=== PATIENT | female | born 1940 | race Caucasian/White ===

== ENCOUNTER → 2018-01-08 13:05 | Outpatient (CLI) | payer MEDICARE ==
[2018-01-08 14:10] LABS: CHOL - HDL RATIO 2.5 ratio (2.3-4.1); LDL-HDL RATIO 1.1 ratio (1.5-3.5)
== END | disposition home or self-care (01) ==
LOC: D.LABREF 13:05
PROVIDERS: Internal Medicine Cardiovascular Disease
DX: E78.5 Hyperlipidemia, unspecified (principal)

== ENCOUNTER 2018-01-15 06:55 | Outpatient (CLI) | payer MEDICARE ==
[~2018-01-15] VITALS: Ht 165.1 cm; Wt 50.9 kg
--- NOTE | ~2018-01-15 | HEMODYNAMI ---
PATIENT:LAKESHIA HERRERA MEDICAL RECORD: [id number] : 36 LOCATION:[facility] ADMISSION DATE: 01/15/18 Generatedon:01/15/201810:13 Patient name: LAKESHIA HERRERA Patient #: [id number] SSN: DO B: 1940 Date of study: 01/15/2018 Page: Of Hemodynamic Procedure Report Patient Data Patient Demographics Procedure consent was obtained First Name: LAKESHIA Gender: Female Last Name: SHAORN : 1940 Patient #: [id number] Age: 77 year(s) Race: Unknown Additional ID: [id number] Contact details Address: [address] [place] [address] State: [place] City: [place] Zip code: [address] Past Medical History Allergies Allergen Reaction Date Comments Reported Other allergy 01/15/2018 Sulfa Admission Admission Data Admission Date: 01/15/2018 Admission Time: 6:55 Admit Source: Other Lab Results Lab Result Date: 01/15/2018 Lab Result Time: 7:28 Biochemistry Name Units Result Min Max BUN mg/dl 16 --(---*)-- 7 18 Creatinine mg/dl 1.3 --(---*)-- 0.6 1.3 CBC Name Units Result Min Max Hematocrit % 40.1 -*(----)-- 42 54 Hemoglobin g/dl 13.5 --(*---)-- 13.5 17.5 Procedure Procedure Types Cath Procedure Diagnostic Procedure LHC LHC w/Coronaries Miscellaneous Procedures Moderate Sedation up to 15 minutes Peripheral Cath Diagnostic Procedure Cath Peripheral Four Vessel Arteriogram Procedure Description Procedure Date Procedure Date: 01/15/2018 Procedure Start Time: 9:52 Procedure End Time: 10:12 Procedure Staff Name Function Stas Meeks MD Performing Physician Alex Bello RN Nurse Rafy Coronel RT Monitor Regla Zeng RT Scrub Procedure Data Cath Procedure Fluoroscopy Diagnostic fluoroscopy Total fluoroscopy Time: 4.2 time: 4.2 min min Diagnostic fluoroscopy Total fluoroscopy dose: 168 dose: 168 mGy mGy Contrast Material Contrast Material Type Amount (ml) Isovue 300 76 Entry Location Entry Primary Successful Side Size Upsize Upsize Entry Closure Succes sful Closure Location (Fr) 1 (Fr) 2 (Fr) Remarks Device Remarks Femoral Right 5 Fr Exoseal artery Estimated blood loss: 5 ml Diagnostic catheters Device Type Used For End Catheter Placement MULTIPACK JL 4.0 5Fr Procedure catheter MULTIPACK 3DRC 5Fr Procedure catheter MULTIPACK Pigtail 5 Fr Procedure catheter Procedure Complications No complications Procedure Medications Medication Administration Route Dosage 0.9% NaCl I.V. 100 ml/hr Oxygen NC 2 l/min Heparin Flush Bag added to field 2 bags (1000units/500ml NS) Lidocaine 2% added to field 20 Versed I.V. 1 mg Fentanyl I.V. 50 mcg Hemodynamics Rest HGB: 13.5 (g/dl) Heart Rate: 59 (bpm) Pressure Samples Time Site Value (mmHg) Purpose Heart Use Rate(bpm) 10:06 LV 115/0,21 EDP 69 10:06 AO 111/44(72) Pullback 60 10:06 LV 112/11,17 Pullback 60 Gradients Valve Time Site 1 Site 2 Mean SEP/DFP Peak To Heart Use (mmHg) (sec/min) Peak Rate (mmHg) (bpm) Aortic 10:06 LV AO 14 21 1 60 112/11,17 111/44(72) Calculations Valve P-P Mean Valve Index Valve Source Name Gradient Area Flow (cm2) Aortic 1 14 1 14 Snapshots Pre Cath Intra NCS Post Cath Vital Signs Time Heart Resp SPO2 etCO2 NIBP (mmHg) Rhythm Pain Sedation Rate (ipm) (%) (mmHg) Status Level (bpm) 9:17:07 61 17 97 30 172/89(138) NSR 0 (11) 10(A) , No pain 9:21:52 58 22 97 25.5 166/88(139) NSR 0 (11) 10(A) , No pain 9:26:37 59 15 96 15 173/87(142) NSR 0 (11) 10(A) , No pain 9:31:17 60 28 95 20.3 160/82(141) NSR 0 (11) 10(A) , No pain 9:36:02 60 25 96 16.5 156/83(128) NSR 0 (11) 10(A) , No pain 9:40:45 58 24 96 18 164/83(138) NSR 0 (11) 10(A) , No pain 9:45:30 58 25 96 13.5 159/79(131) NSR 0 (11) 10(A) , No pain 9:50:12 58 23 97 21.7 155/82(134) NSR 0 (11) 10(A) , No pain 9:54:57 58 24 94 17.2 138/70(111) NSR 0 (11) 9(A) , No pain 9:59:38 56 19 95 21 116/61(84) NSR 0 (11) 9(A) , No pain 10:04:16 57 25 95 31.5 109/58(77) NSR 0 (11) 9(A) , No pain 10:08:51 55 21 94 25.5 113/62(88) NSR 0 (11) 9(A) , No pain Medications Time Medication Route Dose Verified Delivered Reason Notes Effec tiveness by by 9:18:06 0.9% NaCl I.V. 100 Alex Alex Per ml/hr Eugenia Bello physician RN RN 9:18:28 Oxygen NC 2 Alex Alex Per l/min Eugenia Bello physician RN RN 9:18:48 Heparin Flush added 2 Alex Alex used for Bag to bags Lorigan Eugenia procedure (1000units/500ml RN RN NS) 9:19:04 Lidocaine 2% added 20ml Alex Alex for local to vial Lorigan [facility] RN RN 9:51:51 Versed I.V. 1 mg Alex Alex for Lorigan Lorigan sedation RN RN 9:52:05 Fentanyl I.V. 50 Alex Alex for mcg Lorigan Lorigan sedation RN county administrator Log Time Note 8:37:39 Informed consent obtained and on chart 8:38:04 Admit Source: Other 8:38:53 Diagnostic Cath status Elective 8:38:57 Time tracking: Regular hours 8:39:01 Plan of Care:Hemodynamics will remain stable., Cardiac rhythm will remain stable., Comfort level will be maintained., Respiratory function will remain adequate., Patient/ family verbilizes understanding of procedure., Procedure tolerated without complication., Recovers from procedure without complications.. 8:39:11 H&P Date Dictated: 01/07/2018 Within 30 days and on chart., H&P Addendum completed by physician on day of procedure. (MUST COMPLETE FOR ALL OUTPATIENTS). 9:00:10 Alex Bello RN sent for patient. Start room use. 9:00:11 Time tracking: Regular hours 9:00:14 Plan of Care:Hemodynamics will remain stable., Cardiac rhythm will remain stable., Comfort level will be maintained., Respiratory function will remain adequate., Patient/ family verbilizes understanding of procedure., Procedure tolerated without complication., Recovers from procedure without complications.. 9:00:46 Lab Result : BUN 16 mg/dl 9:00:46 Lab Result : Creatinine 1.3 mg/dl ::46 Lab Result : Hemoglobin 13.5 g/dl ::46 Lab Result : Hematocrit 40.1 % 9:02:18 Patient allergic to Other allergySulfa 9:02:22 Family in waiting room. 9:05:17 Patient received from Pre/Post Procedure Room to CCL 1 Alert and oriented. Tansferred to table in Supine position. 9:05:19 Warm blankets applied, and cherise hugger turned on for patient comfort. 9:05:19 Correct patient and procedure confirmed by team. 9:05:21 ECG and BP/O2 sat monitors applied to patient. 9:05:25 Pre-procedure instructions explained to patient. 9:05:26 Pre-op teaching completed and patient verbalized understanding. 9:05:29 Patient NPO since Midnight. 9:16:10 Vital chart was started 9:18:06 0.9% NaCl 100 ml/hr I.V. was administered by Alex Bello RN; Per physician; 9:18:28 Oxygen 2 l/min NC was administered by Alex Bello RN; Per physician; 9:18:48 Heparin Flush Bag (1000units/500ml NS) 2 bags added to field was administered by Alex Bello RN; used for procedure; 9:19:04 Lidocaine 2% 20ml vial added to field was administered by Alex Bello RN; for local anesthetic; 9:21:35 Baseline sample Acquired. 9:21:39 Rhythm: sinus rhythm 9:21:41 Full Disclosure recording started 9:21:44 Is the patient allergic to Iodine/contrast media? No. 9:21:45 Is patient on blood thinner?Yes 9:21:47 ACC The patient was administered the following blood thiners within the last 24 hours: ACCPlavix 9:21:49 Patient diabetic? No. 9:21:52 Previous problem with sedation/anesthesia? No ? 9:21:54 Snore? Yes 9:21:55 Sleep apnea? No 9:21:56 Deviated septum? No 9:21:57 Opens mouth fully? Yes 9:21:58 Sticks out tongue? Yes 9:22:01 Airway obstruction? Yes copd 9:22:04 Dentures? Yes in tight 9:22:07 Pre procedure: right dorsailis pedis pulse 2+ Normal; easily identifiable; not easily obliterated 9:22:09 Patient pain scale 0/10 ?. 9:22:20 IV patent on arrival in left antecubital with 0.9% NaCl at KVO. 9:22:26 Lab results completed and on chart. 9:22:30 Right groin area was prepped with chlora-prep and draped in sterile fashion 9:22:32 Alarms reviewed by R. N. 9:22:32 Sharps counted by scrub and verified by R.N. 9:22:37 Use device set Femoral Dx 9:22:38 ACIST Syringe (84985) opened to sterile field. 9:22:39 Bag Decanter (2002S) opened to sterile field. 9:22:40 ACIST Manifold (05125) opened to sterile field. 9:22:41 ACIST Hand Control (68486) opened to sterile field. 9:22:42 Tegaderm 4 x 4 (1626W) opened to sterile field. 9:22:44 Medline Cath Pack ([id number]) opened to sterile field. 9:22:45 SHEATH 5FR [place] ([id number]) opened to sterile field. 9:22:46 DIAGNOSTIC WIRE .035 260cm J wire (157877) opened to sterile field. 9:22:49 DIAGNOSTIC Multipack 5Fr catheter set ([id number]) opened to sterile field. 9:22:50 PERCUTANEOUS ENTRY 19GA needle opened to sterile field. 9:24:41 MICROPUNCTURE 4FR Idea Shower ([id number]) opened to sterile field. 9:31:02 Zero performed for pressure channel P1 9:50:17 Physician arrived 9:50:17 --------ALL STOP TIME OUT------ 9:50:18 Final Timeout: patient, procedure, and site verified with staff and physician. All members of the team are in agreement. 9:50:20 Right groin site verified by team. 9:50:23 Physical assessment completed. ASA score P 2 - A patient with mild systemic disease as per Stas Meeks MD. :50:27 Sedation plan: IV Moderate Sedation Medication:Versed, Fentanyl 9::51 Versed 1 mg I.V. was administered by Alex Bello RN; for sedation; 9:52:05 Fentanyl 50 mcg I.V. was administered by Alex Bello RN; for sedation; 9::49 Procedure started. 9:52:53 Local anesthetic to right femoral artery with Lidocaine 2% by Stas Meeks MD.INITIAL ACCESS ONLY 9:54:39 Access obtained with 4Fr micropunture. 9:55:26 A 5 Fr sheath was inserted into the Right Femoral artery 9:56:08 A MULTIPACK JL 4.0 5Fr catheter was advanced over the wire and used for Procedure. 9:57:23 LCA angiography performed. 9:57:32 Catheter exchanged over wire. 9:57:37 A MULTIPACK 3DRC 5Fr catheter was advanced over the wire and used for Procedure. 9:59:14 RCA angiography performed. 10:00:16 Left carotid angiography performed. 10:01:21 Right subclavian angiography performed 10:01:23 Right carotid angiography performed. 10:01:59 Catheter exchanged over wire. 10:02:03 A MULTIPACK Pigtail 5 Fr catheter was advanced over the wire and used for Procedure. 10:06:17 LV gram done using CLAROS 10:06:24 Injector settings: Ml/sec: 12, Volume: 8, 10:06:44 EF : 75 % 10:06:51 EXOSEAL 5Fr (EX500) opened to sterile field. 10:06:54 Catheter removed. 10:07:00 Sheath removed intact; hemostasis achieved with Exoseal to the Right Femoral artery. 10:07:10 Procedure ended.(Physican Out) 10:08:16 Fluoroscopy time 04.20 minutes. :: Fluoroscopy dose: 168 mGy 10:08:27 Flurop Dose total: 168 10:08:40 Contrast amount:Isovue 300 76ml. 10:08:43 Insertion/operative site no bleeding no hematoma. 10:08:46 Post-op/insertion site Right Femoral artery dressed using a 4 x 4 and Tegaderm. 10:08:50 Post right femoral artery:stable, soft, clean and dry 10:08:53 Post procedure rhythm: unchanged. 10:08:58 Estimated blood loss: 5 ml 10:09:26 Post procedure instruction explained to patient.Patient verbalizes understanding. 10:09:26 Patient needs reinforcement of post procedure teaching. 10:10:15 Procedure type changed to Cath procedure, Diagnostic procedure, LHC, LHC w/Coronaries, Miscellaneous Procedures, Moderate Sedation up to 15 minutes, Peripheral Cath Diagnostic Procedure, Cath Peripheral, Four Vessel Arteriogram 10:11:49 GLIDE WIRE ANGLE 260cm ([id number]) opened to sterile field. 10:12:18 Procedure and supply charges have been captured, reviewed, submitted and are correct. 10:12:21 Procedure Complication : No complications 10:12:40 Vital chart was stopped 10:12:40 See physician's report for complete and final results. 10:12:42 Report given to Pre/Post Procedure Room. 10:12:45 Patient transfered to Pre/Post Procedure Room with Stretcher. 10:12:47 Procedure ended. 10:12:47 Full Disclosure recording stopped 10:12:53 End room use (Document Last) Device Usage Item Name Manufacture Quantity Catalog Hospital Part Current Minimal Lot# / Number Charge Number Stock Stock Serial# Code ACIST Syringe Acist 1 28188 [id number] 105659 868912 20 (61362) [employer] Bag Decanter Microtek 1 2001S 055690 98168 248619 5 (2001S) Medical Inc. ACIST Acist 1 86819 478477 531336 274098 5 Manifold Medical (75425) Systems Inc ACIST Hand Acist 1 70495 738182 007196 864759 5 Control Medical (98678) Systems Inc Tegaderm 4 x 3M 1 1626W 011971 612386 937833 5 4 (1626W) Medline Cath Cardinal 1 [id number] 194993 47777 459405 5 [facility] ([id number]) SHEATH 5FR Terumo 1 NVP428 027502 780198 434516 40 [place] (IIR109) DIAGNOSTIC St Kirit 1 440415 420980 649520 372024 30 WIRE .035 260cm J wire (965339) DIAGNOSTIC Cardinal 1 TO7238 513880 81455 084992 30 Multipack 5Fr Health catheter set (RI8106) PERCUTANEOUS [facility] 1 C41666 676410 666985 5 ENTRY 19GA needle MICROPUNCTURE Cook [facility] 1 E45135 357788 862891 949796 5 4FR Cook (N27552) MULTIPACK JL Cardinal 1 951028 5 4.0 5Fr Health catheter MULTIPACK Cardinal 1 152525 5 3DRC 5Fr Health catheter MULTIPACK Cardinal 1 209279 5 Pigtail 5 Fr Health catheter EXOSEAL 5Fr Cardinal 1 EX500 541674 573701 330746 10 (EX500) Health GLIDE WIRE Terumo 1 IA0662 327933 115428 529857 5 ANGLE 260cm ([id number]) Signature Audit [place] Stage Time Signature Unsigned Intra-Procedure 01/15/2018 Rafy Coronel 10:13:42 AM RT(R) Signatures Monitor : Rafy Coronel RT Signature : Date : Time : [facility] [address] [place] [address]
[2018-01-15] MEDS ORDERED: TENORMIN25 MG PO (07:10)
[2018-01-15] MEDS ORDERED: XANAX0.25 MG PO (07:11)
[2018-01-15] MEDS ORDERED: SYNTHROID100 MCG PO (07:12)
[2018-01-15] MEDS ORDERED: PLAVIX75 MG PO (07:12)
[2018-01-15] MEDS ORDERED: COZAAR100 MG PO (07:12)
[2018-01-15] MEDS ORDERED: CARTIA XT300 MG PO (07:13)
[2018-01-15] MEDS ORDERED: LIPITOR20 MG PO (07:13)
[2018-01-15] MEDS ORDERED: CARTIA XT120 MG PO (07:14)
[2018-01-15 07:24] VITALS: BP 145/71; Ht 165.1 cm; Wt 50.9 kg
[2018-01-15 07:31] LABS: HEMATOCRIT 40.1 % (36.0-48.0); HEMOGLOBIN 13.5 g/dL (12-16); LYMPHOCYTES 22.4 % (15-50); MCH 28.9 pg (26.0-34.0); MCHC 33.7 g/dL (31.0-37.0); MCV 85.9 fL (80.0-100.0); MEAN PLATELET VOLUME 8.5 fL (7.4-10.4); PLATELET COUNT 258 10x3/uL (130-400); RBC 4.67 10x6/uL (4.00-5.40); RDW 13.8 % (11.5-14.5); WBC 8.6 10x3/uL (4.8-10.8)
[2018-01-15 07:47] LABS: ANION GAP 11.5 mmol/L (8-16); CALCIUM 8.7 mg/dL (8.5-10.1); CARBON DIOXIDE 26.5 mmol/L (21.0-32.0); CREATININE - SERUM 1.3 mg/dL (0.6-1.3)
== END 2018-01-15 12:29 | disposition home or self-care (01) ==
LOC: D.CATH 06:55
PROVIDERS: Internal Medicine Cardiovascular Disease
DX: I25.119 Atherosclerotic heart disease of native coronary artery with unspecified angina pectoris (principal); I65.23 Occlusion and stenosis of bilateral carotid arteries; I35.0 Nonrheumatic aortic (valve) stenosis; Z01.812 Encounter for preprocedural laboratory examination

== ENCOUNTER 2018-01-23 06:22 | Outpatient (CLI) | payer MEDICARE ==
--- NOTE | ~2018-01-23 | HEMODYNAMI ---
PATIENT:LAKESHIA HERRERA MEDICAL RECORD: [id number] : 36 LOCATION:D.CAT ADMISSION DATE: 01/23/18 Generatedon:01/23/20189:43 Patient name: LAKESHIA HERRERA Patient #: [id number] SSN: DO B: 1940 Date of study: 01/23/2018 Page: Of Hemodynamic Procedure Report Patient Data Patient Demographics Procedure consent was obtained First Name: LAKESHIA Gender: Female Last Name: SHARON : 1940 Patient #: [id number] Age: 77 year(s) Race: Unknown Additional ID: [id number] Contact details [address]: [address] [place] [address] State: [place] City: [place] Zip code: [address] Past Medical History Allergies Allergen Reaction Date Comments Reported Other allergy 01/15/2018 Sulfa Sulfa drugs 01/23/2018 Admission Admission Data Admission Date: 01/23/2018 Admission Time: 6:22 Admit Source: Other Lab Results Lab Result Date: 01/23/2018 Lab Result Time: 0:00 Biochemistry Name Units Result Min Max BUN mg/dl 22 --(----)-* 7 18 Creatinine mg/dl 1.2 --(---*)-- 0.6 1.3 CBC Name Units Result Min Max Hemoglobin g/dl 13.6 --(*---)-- 13.5 17.5 Procedure Procedure Types Cath Procedure PCI Procedure Coronary Stent Coronary Stent Initial x2 Miscellaneous Procedures Moderate Sedation up to 45 minutes Procedure Description Procedure Date Procedure Date: 01/23/2018 Procedure Start Time: 8:24 Procedure Staff Name Function Shruthi Lion RN Nurse Rafy Coronel RT Scrub Stas Meeks MD Performing Physician Edith Cedeno RT Monitor Procedure Data Cath Procedure Fluoroscopy Diagnostic fluoroscopy Total fluoroscopy Time: time: 21.6 min 21.6 min Diagnostic fluoroscopy Total fluoroscopy dose: dose: 1970 mGy 1970 mGy Contrast Material Contrast Material Type Amount (ml) Isovue 300 203 Entry Location Entry Primary Successful Side Size Upsize Upsize Entry Closure Succes sful Closure Location (Fr) 1 (Fr) 2 (Fr) Remarks Device Remarks Femoral Left 6 Fr Exoseal artery Short Estimated blood loss: 10 ml Procedure Complications No complications Procedure Medications Medication Administration Route Dosage 0.9% NaCl I.V. 100 ml/hr Oxygen NC 2 l/min Heparin Flush Bag added to field 2 bags (1000units/500ml NS) Lidocaine 2% added to field 20 Versed I.V. 1 mg Fentanyl I.V. 50 mcg Angiomax (bolus) I.V. 7.5 ml Angiomax Drip I.V. drip 17.5 ml/hr (250mg/50ml NS) (Standard) Angiomax Drip I.V. drip 17.5 ml/hr (250mg/50ml NS) (Standard) Hemodynamics Rest HGB: 13.6 (g/dl) Heart Rate: 67 (bpm) Snapshots Pre Cath Intra NCS Post Cath Vital Signs Time Heart Resp SPO2 etCO2 NIBP (mmHg) Rhythm Pain Sedation Rate (ipm) (%) (mmHg) Status Level (bpm) 8:12:56 67 15 95 14.9 167/85(132) NSR 0 (11) 10(A) , No pain 8:17:35 64 21 96 18.6 153/84(120) NSR 0 (11) 10(A) , No pain 8:22:11 62 23 94 25.4 137/72(110) NSR 0 (11) 10(A) , No pain 8:26:52 58 20 94 0 124/67(98) NSR 0 (11) 10(A) , No pain 8:31:24 60 23 96 11.2 121/68(96) NSR 0 (11) 10(A) , No pain 8:35:55 59 18 96 11.2 118/67(92) NSR 0 (11) 10(A) , No pain 8:40:27 59 21 96 0 121/59(94) NSR 0 (11) 9(A) , No pain 8:44:59 57 21 95 0 116/62(91) NSR 0 (11) 9(A) , No pain 8:49:30 58 23 96 0.7 116/64(93) NSR 0 (11) 9(A) , No pain 8:54:00 56 18 97 0 120/62(93) NSR 0 (11) 9(A) , No pain 8:58:32 56 20 97 1.4 111/61(89) NSR 0 (11) 9(A) , No pain 9:03:03 54 20 96 18.6 110/57(82) NSR 0 (11) 9(A) , No pain 9:07:35 58 23 95 19.4 104/53(85) NSR 0 (11) 9(A) , No pain 9:12:38 56 21 97 20.1 121/68(97) NSR 0 (11) 9(A) , No pain 9:17:11 56 18 97 11.9 124/65(98) NSR 0 (11) 9(A) , No pain 9:21:43 55 20 96 26.9 118/66(96) NSR 0 (11) 9(A) , No pain 9:26:16 56 20 96 21.6 111/59(81) NSR 0 (11) 9(A) , No pain 9:30:46 57 21 97 8.9 123/64(97) NSR 0 (11) 10(A) , No pain Medications Time Medication Route Dose Verified Delivered Reason Notes Effectiveness by by 8:22:34 0.9% NaCl I.V. 100 Alex Alex Per physician ml/hr Eugenia Bello RN RN 8:22:46 Oxygen NC 2 Alex Alex Per physician l/min Eugenia Bello RN RN 8:23:15 Heparin Flush added 2 Alex Alex used for Bag to bags Eugenia Bello procedure (1000units/500ml [facility] RN RN NS) 8:24:25 Lidocaine 2% added 20ml Alex Alex for local to vial Eugenia Bello anesthetic field RN RN 8:24:38 Versed I.V. 1 mg Alex Alex for sedation Eugenia Bello RN RN 8:24:52 Fentanyl I.V. 50 Alex Alex for sedation mcg Eugenia Bello RN RN 8:30:27 Angiomax (bolus) I.V. 7.5 Alex Alex for ml Eugenia gaines RN RN 8:34:15 Angiomax Drip I.V. 17.5 Alex Alex for (250mg/50ml NS) drip ml/hr Eugenia Bello anticoagulation (Standard) RN RN 9:29:32 Angiomax Drip I.V. 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 Start room use. 7:51:27 Plan of Care:Hemodynamics will remain stable., Cardiac rhythm will remain stable., Comfort level will be maintained., Respiratory function will remain adequate., Patient/ family verbilizes understanding of procedure., Procedure tolerated without complication., Recovers from procedure without complications.. 7:51:36 H&P Date Dictated: 01/21/2018 Within 30 days and on chart., H&P Addendum completed by physician on day of procedure. (MUST COMPLETE FOR ALL OUTPATIENTS). 7:55:10 Lab Result : Hemoglobin 13.6 g/dl 7:55:10 Lab Result : Creatinine 1.2 mg/dl 7:55:10 Lab Result : BUN 22 mg/dl 7:55:37 Patient allergic to Sulfa drugs 7:59:55 Patient received from Pre/Post Procedure Room to CCL 1 Alert and oriented. Tansferred to table in Supine position. 7:59:56 Warm blankets applied, and cherise hugger turned on for patient comfort. 7:59:57 ECG and BP/O2 sat monitors applied to patient. 7:59:57 Correct patient and procedure confirmed by team. 8:11:22 Vital chart was started 8:11:40 Rhythm: sinus rhythm 8:11:41 Full Disclosure recording started 8:11:47 Pre-procedure instructions explained to patient. 8:11:48 Pre-op teaching completed and patient verbalized understanding. 8:11:49 Family in patients room. 8:11:50 Patient NPO since Midnight. 8:11:53 Is the patient allergic to Iodine/contrast media? No. 8:11:55 Is patient on blood thinner?Yes 8:11:58 ACC The patient was administered the following blood thiners within the last 24 hours: ACCPlavix 8:12:01 Patient diabetic? No. 8:12:04 Snore? No 8:12:04 Previous problem with sedation/anesthesia? No ? 8:12:11 Sleep apnea? No 8:12:13 Deviated septum? No 8:12:14 Opens mouth fully? Yes 8:12:15 Sticks out tongue? Yes 8:12:27 Airway obstruction? Yes COPD\ 8:12:31 Dentures? Yes IN TIGHT 8:12:34 Pre procedure: left dorsailis pedis pulse 2+ Normal; easily identifiable; not easily obliterated 8:12:36 Patient pain scale 0/10 ?. 8:12:55 IV patent on arrival in left hand with 0.9% NaCl at [facility]. 8:12:59 Lab results completed and on chart. 8:13:08 Left groin area was prepped with chlora-prep and draped in sterile fashion 8:13:12 Sharps counted by scrub and verified by R.N. 8:13:12 Alarms reviewed by R. N. 8:13:14 Final Timeout: patient, procedure, and site verified with staff and physician. All members of the team are in agreement. 8:13:14 --------ALL STOP TIME OUT------ 8:13:17 Left groin site verified by team. 8:13:21 Physical assessment completed. ASA score P 2 - A patient with mild systemic disease as per Stas Meeks MD. 8:13:24 Sedation plan: IV Moderate Sedation Medication:Versed, Fentanyl 8:13:42 Use device set CATH PACK 8:13:46 Use device set NORRED PCI 8:13:47 ACIST Hand Control (80936) opened to sterile field. 8:13:47 ACIST Syringe (21148) opened to sterile field. 8:13:48 ACIST Manifold (57288) opened to sterile field. 8:13:51 Medline Cath Pack ([id number]) opened to sterile field. 8:13:51 Bag Decanter (2002S) opened to sterile field. 8:13:52 DIAGNOSTIC WIRE .035 260cm J wire (645887) opened to sterile field. 8:13:53 COPILOT Valve Control (0854898) opened to sterile field. 8:13:53 INFLATOR Merit BasixCompak (RY6897) opened to sterile field. 8:14:09 Baseline sample Acquired. 8:22:34 0.9% NaCl 100 ml/hr I.V. was administered by Alex Bello RN; Per physician; 8:22:46 Oxygen 2 l/min NC was administered by Alex Bello RN; Per physician; 8:23:15 Heparin Flush Bag (1000units/500ml NS) 2 bags added to field was administered by Alex Bello RN; used for procedure; 8:24:25 Lidocaine 2% 20ml vial added to field was administered by Alex Bello RN; for local anesthetic; 8:24:26 Procedure started. 8:24:31 Local anesthetic to right femoral vein with Lidocaine 2% by Stas Meeks MD.INITIAL ACCESS ONLY 8:24:38 Versed 1 mg I.V. was administered by Alex Bello RN; for sedation; 8:24:52 Fentanyl 50 mcg I.V. was administered by Alex Bello RN; for sedation; 8:27:49 Zero performed for pressure channel P1 8:27:59 Access obtained with 4Fr micropunture. 8:28:08 A 6 Fr Short sheath was inserted into the Left Femoral artery 8:28:25 GUIDE 6FR XBLAD 3.5 SH catheter ([id number]) opened to sterile field. 8:29:09 6 Fr XBLAD 3.5 SH guide catheter was inserted over the wire 8:30:27 Angiomax (bolus) 7.5 ml I.V. was administered by Alex Bello RN; for anticoagulation; 8:31:41 BMW 190cm Butler 2 J wire ([id number]) opened to sterile field. 8:31:49 BMW 190 wire advanced. 8:34:15 Angiomax Drip (250mg/50ml NS) (Standard) 17.5 ml/hr I.V. drip was administered by Alex Bello RN; for anticoagulation; 8:38:02 Inflation Number: 1 A LAITH RX 4.0 x 08 stent ([id number]) was prepped and advanced across the LMCA. The stent was deployed at 16 CHRISTOPHER for 0:10 (min:sec). 8:38:10 Stent catheter was removed intact over wire. 8:41:29 Wire redirected to CIRC. 8:42:16 GRAPHIX 300cm 0.014 guide wire ([id number]) opened to sterile field. 8:42:28 PT GRAPHIX 300 wire advanced. 8:46:40 PT GRAPHIX 300 ADVANCED ACROSS LAD 8:50:29 Inflation Number: 1 A LAITH RX 2.5 x 18 stent ([id number]) was prepped and advanced across the Mid CX. The stent was deployed at 18 CHRISTOPHER for 0:10 (min:sec). 8:50:57 Stent catheter was removed intact over wire. 8:53:59 Inflation number: 2 A NC EMERGE 4.5 x 8 balloon ([id number]) was prepped and advanced across the LMCA, then inflated to 14 CHRISTOPHER for 0:10 (min:sec). 8:54:15 Balloon removed over the wire. 8:55:37 WIRE REMOVED FROM CIRC 8:57:02 BMW WIRE REMOVED 8:57:14 FIELDER XT J 300cm guide wire ([id number]) opened to sterile field. 8:58:08 FIELDER WIRE wire advanced. 9:00:12 FIELDER UNABLE TO CROSS LAD 9:00:13 Wire removed. 9:01:29 WHOLEY 300cm 0.035 wire ([id number]) opened to sterile field. 9:01:53 WHOLEY WIRE wire advanced. 9:02:00 Wire removed. 9:02:10 UNABLE TO PASS WHOLEY WIRE 9:02:43 FIELDER WIRE wire advanced. 9:07:30 Wire advanced across lesion. 9:12:28 Inflation number: 1 A EUPHORA 2.5 x 20 Balloon ([id number]) was prepped and advanced across the Mid LAD, then inflated to 15 CHRISTOPHER for 0:10 (min:sec). 9:13:02 Inflation number: 2 The EUPHORA 2.5 x 20 Balloon ([id number]) was reinflated across the Mid LAD, to 16 CHRISTOPHER for 0:10 (min:sec). 9:13:11 Balloon removed over the wire. 9:16:31 Inflation Number: 3 A LAITH RX 3.0 x 30 stent ([id number]) was prepped and advanced across the Mid LAD. The stent was deployed at 12 CHRISTOPHER for 0:10 (min:sec). 9:16:43 Stent catheter was removed intact over wire. 9:22:05 Inflation Number: 1 A LAITH RX 3.0 x 15 stent ([id number]) was prepped and advanced across the Prox LAD. The stent was deployed at 20 CHRISTOPHER for 0:10 (min:sec). 9:23:06 Stent catheter was removed intact over wire. 9:25:14 Wire removed. 9:26:17 Guide catheter removed. 9:26:26 EXOSEAL 6Fr (EX600) opened to sterile field. 9::38 Sheath removed intact; hemostasis achieved with Exoseal to the Left Femoral artery. 9:27:40 Procedure ended.(Physican Out) 9:29:05 Fluoroscopy time 21.60 minutes. 9:29:10 Fluoroscopy dose: 1970 mGy 9:: Flurop Dose total: 1969 9:: Contrast amount:Isovue 300 203ml. 9:29:15 Sharps counted by scrub and verified by R.N. 9:29:22 Post-op/insertion site Left Femoral artery dressed using a 4 x 4 and Tegaderm. 9:29:32 Post left femerol artery:stable, soft, clean and dry 9:29:32 Angiomax Drip (250mg/50ml NS) (Standard) 17.5 ml/hr I.V. drip was administered by Alex Bello RN; to sharp's; 9:29:36 Post procedure: left dorsailis pedis pulse 2+ Normal; easily identifiable; not easily obliterated. 9:29:39 Post-procedure physical assessment completed. ASA score P 2 - A patient with mild systemic disease as per Stas Meeks MD. 9:29:50 Post procedure rhythm: unchanged. 9:29:53 Estimated blood loss: 10 ml 9:29:55 Patient needs reinforcement of post procedure teaching. 9:29:55 Post procedure instruction explained to patient.Patient verbalizes understanding. 9:30:40 Procedure type changed to Cath procedure, PCI procedure, Coronary Stent, Coronary Stent Initial x2, Miscellaneous Procedures, Moderate Sedation up to 45 minutes 9:39:56 FEMSTOP Gold ([id number]) opened to sterile field. 9:40:03 Femstop placed over the left femerol artery at 138 mmHg. Hemostasis achieved. 9:41:22 SHEATH 6FR Jackson (NDZ305) opened to sterile field. 9:42:57 Procedure and supply charges have been captured, reviewed, submitted and are correct. 9:43:00 Procedure Complication : No complications 9:43:04 See physician's report for complete and final results. 9:43:05 Report given to Pre/Post Procedure Room. 9:43:08 Patient transfered to Pre/Post Procedure Room with Bed. 9:43:14 End room use (Document Last) Intervention Summary Intervention Notes Time ActionType Lesion and Equipment Used Action# Pressure Duration Attributes 8:38:02 Place stent LMCA LAITH RX 4.0 x 1 16 00:10 08 stent ([id number]) 8:50:29 Place stent Mid CX LAITH RX 2.5 x 1 18 00:10 18 stent ([id number]) 8:53:59 Inflate LMCA NC EMERGE 4.5 2 14 00:10 balloon x 8 balloon ([id number]) 9:12:28 Inflate Mid LAD EUPHORA 2.5 x 1 15 00:10 balloon 20 Balloon ([id number]) 9:13:02 Reinflate Mid LAD EUPHORA 2.5 x 2 16 00:10 balloon 20 Balloon ([id number]) 9:16:31 Place stent Mid LAD LAITH RX 3.0 x 3 12 00:10 30 stent ([id number]) 9:22:05 Place stent Prox LAD LAITH RX 3.0 x 1 20 00:10 15 stent ([id number]) Device Usage Item Name Manufacture Quantity Catalog Number Hospital Part Current Minimal Lot# / Charge Number Stock Stock Serial# Code ACIST Syringe Acist 1 24235 256532 801506 765268 20 (67972) Medical Systems Inc ACIST Hand Acist 1 04328 633410 603087 678919 5 Control Medical (72863) Systems Inc ACIST Manifold Acist 1 82597 081421 069949 668469 5 (49303) Medical Systems Inc Bag Decanter Microtek 1 2001S 597626 67254 889686 5 () Medical Inc. Medline Cath Cardinal 1 [id number] 968969 30886 692366 5 [facility] ([id number]) DIAGNOSTIC St Kirit 1 220003 455048 045490 211040 30 WIRE .035 260cm J wire (154962) INFLATOR Merit Merit 1 NK6793 680200 367133 291701 15 BasixCompak Medical ([id number]) COPILOT Valve Enrique 1 2959409 847418 927818 320455 5 Control Vascular (2284604) GUIDE 6FR Cardinal 1 [id number] 899056 009558 812334 3 XBLAD 3.5 Health catheter (33551934) BMW 190cm Enrique 1 [id number] 947619 90756 622765 5 Butler 2 J Vascular wire ([id number]) LAITH RX 4.0 x Medtronic 1 [id number] 576786 6043037 167970 5 08 stent ([id number]) GRAPHIX 300cm [place] 1 [id number] 350865 056376 211208 5 0.014 guide Scientific wire ([id number]) LAITH RX 2.5 x Medtronic 1 [id number] 193539 5906187 147633 5 18 stent ([id number]) NC EMERGE 4.5 [place] 1 [id number] 694335 514043 868725 5 x 8 balloon Scientific ([id number]) FIELDER XT J Enrique 1 [id number] 695510 143339 818925 5 300cm guide Vascular wire ([id number]) WHOLEY 300cm Medtronic 1 [id number] 422602 471346 413647 3 0.035 wire ([id number]) EUPHORA 2.5 x Medtronic 1 [id number] 408320 550035 179101 5 [id number] 20 Balloon ([id number]) LAITH RX 3.0 x Medtronic 1 [id number] 263687 2726922 132848 5 30 stent ([id number]) LAITH RX 3.0 x Medtronic 1 [id number] 576862 4991707 640852 5 [id number] 15 stent ([id number]) EXOSEAL 6Fr Cardinal 1 EX600 949044 448460 366095 10 (EX600) Health FEMSTOP Gold St Kirit 1 [id number] 849762 385171 805659 5 ([id number]) SHEATH 6FR Terumo 1 [id number] 593926 967242 411873 40 Jackson (WSH792) Signature Audit [place] [facility] Time Signature Unsigned Intra-Procedure 01/23/2018 Edith Cedeno 9:43:36 AM RT(R) Signatures Monitor : Edith Cedeno Signature : RT Date : Time : [place] [id number] [facility] [place] [address]
[~2018-01-23 06:22] MED LIST: CARTIA XT120 MG PO; CARTIA XT300 MG PO; COZAAR100 MG PO; LIPITOR20 MG PO; PLAVIX75 MG PO; SYNTHROID100 MCG PO; TENORMIN25 MG PO; XANAX0.25 MG PO
[2018-01-23 06:46] VITALS: BP 136/72; BMI 18.6
[2018-01-23 07:11] LABS: BASOPHILS 0.5 % (0-2); EOSINOPHILS 1.8 % (0-7); HEMATOCRIT 40.4 % (36.0-48.0); HEMOGLOBIN 13.6 g/dL (12-16); IMMATURE GRANULOCYTES 0.2 % (0-5); LYMPHOCYTES 22.1 % (15-50); MCH 29.1 pg (26.0-34.0); MCHC 33.7 g/dL (31.0-37.0); MCV 86.5 fL (80.0-100.0); MEAN PLATELET VOLUME 9.1 fL (7.4-10.4); MONOCYTES 7.9 % (2-11); NEUTROPHILS 67.5 % (40-80); PLATELET COUNT 229 10x3/uL (130-400); RBC 4.67 10x6/uL (4.00-5.40); RDW 13.7 % (11.5-14.5); WBC 9.7 10x3/uL (4.8-10.8)
[2018-01-23 07:21] LABS: ANION GAP 11.7 mmol/L (8-16); CALCIUM 9.1 mg/dL (8.5-10.1); CARBON DIOXIDE 26.4 mmol/L (21.0-32.0); CREATININE - SERUM 1.2 mg/dL (0.6-1.3); POTASSIUM - SERUM 4.1 mmol/L (3.5-5.1)
[2018-01-23 13:35] VITALS: BP 123/67; BMI 18.6
[2018-01-23 14:39] VITALS: BP 103/58
[2018-01-23 20:39] VITALS: BP 97/50
[2018-01-24] VITALS: BP 107/56
[2018-01-24 04:53] VITALS: BP 119/63
[2018-01-24] MEDS ORDERED: PLAVIX75 MG PO (08:04)
[2018-01-24] MEDS ORDERED: CIPRO500 MG PO (08:04)
[2018-01-24 08:09] VITALS: BP 111/54
[2018-01-24] MEDS ORDERED: ASPIRIN325 MG PO (10:06)
[2018-01-24 11:19] VITALS: BP 110/60
[2018-02-22] MEDS ORDERED: LIPITOR80 MG PO (09:08)
[2018-02-22] MEDS ORDERED: ALENDRONATE SOD70 MG PO (09:10)
== END 2018-01-24 10:30 | disposition home or self-care (01) ==
LOC: OBSVTIME → D.CATH 06:22 → D.M2 12:49 → D.CATH 01-24 09:09 → D.M2 01-24 09:10 → D.CATH 01-24 09:10 → OBSVTIME 01-24 09:10 → D.M2 01-24 09:10 → D.CATH 01-24 10:30
PROVIDERS: Internal Medicine Cardiovascular Disease
DX: I25.119 Atherosclerotic heart disease of native coronary artery with unspecified angina pectoris (principal); Z01.812 Encounter for preprocedural laboratory examination
CPT/HCPCS: C9600 ×3

== ENCOUNTER 2018-02-25 05:12 | Inpatient (IN) | payer MEDICARE ==
[2018-02-22 10:13] LABS: HEMOGLOBIN 14.2 g/dL (12-16); MCH 29.4 pg (26.0-34.0); MEAN PLATELET VOLUME 9.4 fL (7.4-10.4); RBC 4.83 10x6/uL (4.00-5.40); RDW 13.9 % (11.5-14.5); WBC 9.7 10x3/uL (4.8-10.8)
[2018-02-22 10:33] LABS: APTT 25.7 SECONDS (22.8-39.4); INR 0.99 (0.85-1.17); PROTIME 12.7 SECONDS (11.6-15.0)
[2018-02-22 10:38] LABS: ALBUMIN 3.3 g/dL (3.4-5.0); ANION GAP 9.3 mmol/L (8-16); BILIRUBIN - TOTAL 0.2 mg/dL (0.2-1.3); CALCIUM 8.6 mg/dL (8.5-10.1); CARBON DIOXIDE 29.9 mmol/L (21.0-32.0); CREATININE - SERUM 1.1 mg/dL (0.6-1.3); POTASSIUM - SERUM 4.2 mmol/L (3.5-5.1)
[2018-02-22 10:48] LABS: APPEARANCE CLEAR (CLEAR); BILIRUBIN NEGATIVE (NEGATIVE); COLOR YELLOW (YELLOW); GLUCOSE NEGATIVE (NEGATIVE); KETONE NEGATIVE (NEGATIVE); NITRITE NEGATIVE (NEGATIVE); PROTEIN NEGATIVE (NEGATIVE); SPECIFIC GRAVITY 1.015 (1.005-1.020); UROBILINOGEN NORMAL (NORMAL); WHITE CELLS - URINE RARE /hpf (0-5)
[2018-02-22 10:49] LABS: BACTERIA FEW /hpf (NONE SEEN); EPITHELIAL CELLS RARE /hpf (0-5)
[~2018-02-25] VITALS: Ht 165.1 cm; Wt 50.2 kg
[2018-02-25] VITALS (55 sets, daily range): BP systolic 113–154; BP diastolic 45–78; Ht 165.1 cm; Wt 50.2 kg
--- NOTE | ~2018-02-25 | HP ---
PATIENT: LAKESHIA HERRERA MEDICAL RECORD: [id number] ACCOUNT: [id number] LOCATION:[facility].CV02 : 38 ADMISSION DATE: 02/25/18 HISTORY AND PHYSICAL EXAMINATION LAKESHIA Gibbons (77yo, F) ID# [id number]. Date/Time02/20/2018 01:91XVQRP1938Service Dept.NPP_[facility] ClinicProviderEDVARINDER WHITNEY MDInsuranceMed Primary: [facility] Insurance # : [id number] Policy/Group # : [id number] PCP : PRAKASH CLINE Referring Provider Name : PRAKASH CLINE Employer Name : UNKNOWN Prescription: CMX - Member is eligible. Prescription: ESI1 - Member is eligible. Chief Complaint Followup: Carotid artery stenosis Followup: Coronary arteriosclerosis following CAD/CS saw [facility] for angioplasty and stenting 01/23/18, now re eval for LCEA Patient's Care Team Primary Care Provider (): PRAKASH CLINE: [address] [place] [address], , Referring Provider (): PRAKASH CLINE: [address] [facility] [place] [address], , Patient's Pharmacies [id number] ([place]): [address] [place] [address], , Vitals BP:142/72 sitting L arm 02/20/2018 02:19 pm 142/78 sitting R arm 02/20/2018 02:20 pmBP Cuff Size:adult 02/20/2018 02:19 pm adult 02/20/2018 02:20 pmHR:68,reg 02/20/2018 02:20 pmHt:5 ft 5 in 02/20/2018 02:05 pmWt:110 lbs 02/20/2018 02:20 pmNotes:last week 02/16 had a TIA at her niece's house affecting her right arm, and every day has intermittent tingling to mouth. Left side of face feels "strange", off and on, if she sits looking down at her hands.Episodes do not last very long. 02/20/2018 02:21 pmBMI:18.3 02/20/2018 02:20 pmAllergies Reviewed Allergies SULFA (SULFONAMIDE ANTIBIOTICS)Medications Reviewed Medications alendronate 70 mg tablet Take 1 tablet(s) every week by oral route.01/15/18 [facility] 200 mg capsule,ext.release 12 hr multiphase Take 1 capsule(s) twice a day by oral route.01[facility] Wilsonatenolol [facility] mg nommuj97/16/18 filledCaremarkatorvastatin 20 mg tablet Take 4 tablet(s) every day by oral route.01/15/18 [facility] Shaunciprofloxacin 500 mg zxqyse91/01/18 filledCaremarkclopidogrel 75 mg hhvvby33/01/18 filledCaremarkdilTIAZem CD 120 mg capsule,extended release 24 hr Take 1 capsule(s) every day by oral route.01/15/18 [facility] WilsondilTIAZem CD 300 mg capsule,extended release 24 hr Take 1 capsule(s) every day by oral route.01/15/18 [facility] mcg capsule Take 1 capsule(s) every day by oral route.01/15/18 [facility] Wilsonlosartan 100 mg tablet Take 1 tablet(s) every day by oral route.01/15/18 [facility] WilsonXanax 0.25 mg tablet HISTORY AND PHYSICAL [id number] LAKESHIA HERRERA Take 1 tablet(s) 3 times a day by oral route.01/15/18 [facility] ShaunProblems Reviewed Problems Coronary arteriosclerosis - Onset: 01/15/2018 Carotid artery stenosis - Onset: 01/15/2018 Family History Reviewed Family History Daughter- Coronary arteriosclerosisMother- Coronary arteriosclerosisFather- Neoplasm of brainSocial History Reviewed Social History Cardiology Family history of heart disease?: Y Smoking Status: Current every day smoker Smoker (1/2 PPD) High Cholesterol: Y High blood pressure: Y Overweight: N Obese: N Surgical History Reviewed Surgical History Dilation of vagina Hemorrhoidopexy by stapling Angioplasty - 01/23/2018 - stenting 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 HPI Cerebral Vascular Disease Reported by patient. Quality: weakness; numbess; tingling; paresthesias Duration: has noted for months Associated Symptoms: numbness and tingling to right hand, mouth on right, and left side of face has abnormal sensation. carotid artery disease Recent stenting of left main and left anterior descending Recent TIA ROS Patient reports exercise intolerance but reports no fever, no night sweats, no significant weight gain, and no significant weight loss. She reports chest pain on exertion, arm pain on exertion, shortness of breath when walking, shortness of breath when lying down, and light-headed on standing bu t reports no palpitations and no known heart murmur. She reports cough and shortness of breath but reports no HISTORY AND PHYSICAL [id number] SHARON,LAKESHIA VIJAY wheezing and no coughing up blood. She reports muscle aches and muscle weakness but reports no arthralgias/joint pain, no back pain, and no swelling in the extremities. She reports weakness and numbness but reports no loss of consciousness, no seizures, no dizziness, and no headaches; aphasia and right arm paralysis with TIA. She reports no depression, no sleep disturbances, feeling safe in relationship, and no alcohol abuse; anxiety disorder. She reports no dry eyes, no irritation, and no vision change. She reports no difficulty hearing and no ear pain. She reports no frequent nosebleeds and no nose/sinus problems. She reports no sore throat, no ble eding gums, no snoring, no dry mouth, no mouth ulcers, no oral abnormalities, and no teeth problems. She reports no jugular vein distension and no swollen glands. She reports no abdominal pain, no vomiting, normal appetite, no diarrhea, not vomiting blood , no nausea, and no constipation. She reports no incontinence, no difficulty urinating, no hematuria, and no increased frequency. She reports no abnormal mole, no jaundice, and no rashes. She reports no fatigue. She reports no swollen glands and no bruisin g. She reports no runny nose, no sinus pressure, no itching, no hives, and no frequent sneezing. ROS as noted in the HPI Physical Exam Patient is a 77-year-old female. Constitutional: General Appearance healthy-appearing and thin. Level of Distress NAD. Ambulation ambulating normally. Cardiovascular: Apical Impulse not displaced or no thrill. Heart Auscultation normal s1 and s2, no rubs or gallops, and RRR and murmur (aortic stenosis). Arterial Pulses no abdominal aorta bruits, femoral bruits, or popliteal bruits and 2+ bilateral, carotid 2+ bilateral, femoral 2+ bilateral, popliteal 2+ bilateral, and dorsalis pedis 2+ bilateral; bilateral carotid bruits. Edema no edema or varicosities. Lungs: Repiratory Effort no dyspnea. Percussion no dullness or flatness and hyperresonance . Auscultation no wheezing, rhonchi, or rales / crackles and breathing sounds normal, good air movement, and CTA except as noted. Abdomen: Bowl Sounds normal. Inspection and Palpation no tenderness, guarding, masses, or rebound tender ness and soft and non-distended. Liver non-tender and no hepatomegaly. Spleen non-tender and no splenomegaly. Hernia none palpable. Musculoskeletal System: Gait And Stance normal gait and stance. Digits and Nails normal nails and no cyanosis. Neurologic: Cranial Nerves grossly intact. Reflexes DTRs 2+ bilaterally throughout. Sensation grossly intact. Lymph Nodes: Lymph Nodes no cervical LAD, supraclavicular LAD, axillary LAD, or inguinal LAD. Eyes: Lids and Conjunctivae no discharge or pallor and non-injected. Pupils PERRLA. Cornea grossly intact. EOM EOMI. Lens clear. Sclera non-icteric. Neck: Neck no masses, enlarged lymph nodes, or carotid bruits and supple and trachea midline. Thyroid no enlargement or nodules and non-tender. Skin: Inspection and Palpation no rash, lesions, ulcers, jaundice, or abnormal nevi. Assessment / Plan severe left internal carotid artery stenosiswith TIAs HISTORY AND PHYSICAL [id number] LAKESHIA HERRERA 1. Carotid artery stenosis I65.29: Occlusion and stenosis of unspecified carotid artery CAROTID STENOSIS: CARE INSTRUCTIONS 2. Coronary arteriosclerosis I25.110: Atherosclerotic heart disease of [place] coronary artery with unstable angina pectoris Discussion Notes severe left internal carotid artery stenosis. I have discussed her disease process with her and her in detail as well as the alternative methods of treatment. We discussed left carotid endarterectomy including the expected benefits and risks which include bleeding, infection, stroke, , and imponderables. She understands all of the above and she wishes to proceed with planned left carotid endarterectomy. SUMAYA WHITNEY MD at 1112 CC: [id number] DICTATION DATE: 02/20/18 1340 AUTOCAD OPERATOR: DM 02/21/18 0853 DIS IN 02/27/18 [id number] [place] [address]
--- NOTE | ~2018-02-25 | CN ---
PATIENT NAME:LAKESHIA HERRERA MEDICAL RECORD: [id number] : 36 LOCATION:[facility].CV02 ADMIT DATE: 02/25/18 ACCOUNT: [id number] CONSULTING PHYSICIAN: RAKESH FUCHS MD REFERRING PHYSICIAN: CARLOS WHITNEY MD DATE OF CONSULTATION: 02/26/2018 CONSULT REQUESTING PHYSICIAN: Carlos Whitney MD REASON FOR CONSULTATION: Shortness of breath, COPD. HISTORY OF PRESENT ILLNESS: Ms. Herrera is a 77-year-old female who has history of smoking, tobacco dependence, underwent left carotid endarterectomy yesterday. Now, she is complaining of some shortness of breath. Chest radiograph showed that she has a worsening right-sided pleural effusion. She is coughing, which is productive with yellow color sputum production. Sometimes she hears herself wheezing. REVIEW OF SYSTEMS: As in history of present illness. PAST MEDICAL HISTORY: 1. COPD. 2. Coronary artery disease. 3. Peripheral vascular disease. 4. Hyperlipidemia. 5. Hypertension. PAST SURGICAL HISTORY: 1. Now she is status post left carotid endarterectomy. 2. Dilatation of vagina. 3. Cardiac catheterization and stent placement. OTHER PAST MEDICAL HISTORY: She has hypothyroidism. ALLERGIES: SHE IS ALLERGIC TO SULFA. PRESENT MEDICATIONS: [employer] is reviewed. PERSONAL AND SOCIAL HISTORY: The patient still continues to smoke. She is a nondrinker. FAMILY HISTORY: Noncontributory. PHYSICAL EXAMINATION: GENERAL: Now, the patient is lying comfortably. She is not in acute distress. VITAL SIGNS: The blood pressure is 137/62, pulse is 80, respiration is 19, temperature is 99, SpO2 is 88% on room air. HEENT: Conjunctivae are pink. Sclerae are not icteric. NECK: Supple, no JVD. CHEST: Excursion is minimal. There are crackles at the right base. No wheezing. HEART: Rhythm regular, normal heart sound, no murmur. ABDOMEN: Soft, bowel sounds present. No hepatosplenomegaly. RECTAL: Deferred. EXTREMITIES: No cyanosis, no clubbing, no pedal edema. CONSULT REPORT [id number] LAKESHIA HERRERA CENTRAL NERVOUS SYSTEM: The patient is awake and alert. There is no obvious cranial nerve abnormality. The gait was not tested. LABORATORY DATA: CBC: WBC 9.7, hemoglobin 14.2, the hematocrit is 43, the platelet count 226. Chemistry: Sodium 141, potassium 4.2, chloride 106, BUN is 20, creatinine 1.1. IMPRESSION: 1. Acute hypoxic respiratory failure. 2. Right-sided pleural effusion. 3. Acute exacerbation of chronic obstructive pulmonary disease. 4. Right pleural effusion. The etiology is not clear, rule out congestive heart failure, rule out any pneumonic process. 5. Peripheral vascular disease, status post left carotid endarterectomy. 6. Tobacco dependence syndrome. 7. Acute bronchitis. 8. Coronary artery disease. RECOMMENDATION: 1. I will start her on Rocephin. 2. Albuterol ipratropium nebulizer, Brovana and budesonide nebulizer, start methylprednisolone IV, check the decubitus chest film. Check the proBNP. Dr. Whitney, thank you for involving me in the care of Ms. Herrera. TRANSINT:[id number] Voice Confirmation ID: [id number] DOCUMENT ID: [id number] RAKESH FUCHS MD at 1410 CC: CARLOS WHITNEY [id number] DICTATION DATE: 02/26/18 1544 LEHR OPERATOR: 02/26/18 1630 DIS IN 02/27/18 [id number] [place] [address]
--- NOTE | ~2018-02-25 | OP ---
PATIENT NAME: LAKESHIA HERRERA MEDICAL RECORD: [id number] :38 LOCATION:D.CVI D.CV02 ADMISSION DATE:02/25/18 SURGEON: SUMAYA WHITNEY MD DATE OF OPERATION: 02/25/2018 SURGEON: Sumaya Whitney MD ANESTHESIA: General endotracheal, Dr. Wyman. OPERATION PERFORMED: Left carotid endarterectomy with patch angioplasty. PREOPERATIVE DIAGNOSIS: Severe left internal carotid artery stenosis. POSTOPERATIVE DIAGNOSIS: Severe left internal carotid artery stenosis. INDICATION FOR OPERATION: Severe left internal carotid artery stenosis. FINDINGS AT OPERATION: Severe left internal carotid artery stenosis. There were no EEG changes with clamping or unclamping of the carotid artery. ESTIMATED BLOOD LOSS: Less than 100 mL. DESCRIPTION OF PROCEDURE: After informed consent and adequate preoperative medication evaluation, the patient was brought to the operating room and placed on table in supine position. After induction of general endotracheal anesthesia and application of appropriate monitoring devices, the left neck and chest were prepped and draped in sterile field, utilizing Betadine scrub, alcohol, and Betadine solution. A Betadine-impregnated drape was also used. An oblique incision was made in the left skin crease and dissection carried down the fascia. Hemostasis was maintained with electrocautery. The facial vein was identified and divided. Utilizing sharp dissection, the common carotid, internal and external carotid arteries were dissected free from surrounding structures, protecting the neurological structures. The patient was given a calculated dose of heparin. After 2 minutes, clamps were applied. After 2 minutes, no EEG changes. The patient underwent endarterectomy sharply. Artery underwent extensive debridement and irrigation. Utilizing a CorMatrix vascular patch, a running 7-0 Prolene suture, the arteriotomy was closed with patch angioplasty technique. All maneuvers to remove trapped air were performed. The clamps were removed sequentially. There were no EEG changes. The patient was given a calculated dose of protamine to reverse the heparin. Hemostasis was achieved. A #7 Tucker-Corrales drain was left in depths of wound and brought out through the base of the neck. Neck was again irrigated. Instrument count and sponge count were correct times 2. Neck was closed in layers utilizing 3-0 Vicryl on the platysma, 5-0 subcuticular Monocryl on the skin. Sterile dressings were applied. The patient tolerated the procedure well and transferred to CV ICU in satisfactory condition. TRANSINT:[id number] Voice Confirmation ID: [id number] DOCUMENT ID: [id number] OPERATIVE REPORT [id number] LAKESHIA HERRERA, SUMAYA LANGE at 1112 CC: [id number] DICTATION DATE: 02/25/18 1031 DATA BASE DESIGN ANALYST: 02/25/18 1224 DIS IN 02/27/18 [id number] [place] [id number]
[~2018-02-25 05:12] MED LIST changes: +ALENDRONATE SOD70 MG PO; +ASPIRIN325 MG PO; +CIPRO500 MG PO; +LIPITOR80 MG PO
[2018-02-26] VITALS (47 sets, daily range): BP systolic 116–149; BP diastolic 47–97
[2018-02-27] VITALS (7 sets, daily range): BP systolic 118–154; BP diastolic 56–84
[2018-02-27 06:01] LABS: BASOPHILS 0 % (0-2); EOSINOPHILS 0 % (0-7); HEMATOCRIT 36.3 % (36.0-48.0); HEMOGLOBIN 11.7 g/dL (12-16); IMMATURE GRANULOCYTES 0.3 % (0-5); LYMPHOCYTES 7.4 % (15-50); MCH 28.3 pg (26.0-34.0); MCHC 32.2 g/dL (31.0-37.0); MCV 87.9 fL (80.0-100.0); MEAN PLATELET VOLUME 9.5 fL (7.4-10.4); MONOCYTES 1.9 % (2-11); NEUTROPHILS 90.4 % (40-80); PLATELET COUNT 186 10x3/uL (130-400); RBC 4.13 10x6/uL (4.00-5.40); RDW 13.8 % (11.5-14.5)
[2018-02-27 06:09] LABS: ANION GAP 10.4 mmol/L (8-16); CARBON DIOXIDE 26.7 mmol/L (21.0-32.0); CREATININE - SERUM 1.2 mg/dL (0.6-1.3); POTASSIUM - SERUM 4.1 mmol/L (3.5-5.1)
[2018-02-27] MEDS ORDERED: AUGMENTIN 875-11 TAB PO (11:18)
[2018-02-27] MEDS ORDERED: STERAPRED 5MG 125 MG PO (11:19)
[2018-02-27] MEDS ORDERED: IPRAT-ALBUT 0.5-3 ML UPD (11:19)
[2018-02-27] MEDS ORDERED: BROVANA15 MCG/2 M INH (11:23)
[2018-02-27] MEDS ORDERED: ASPIRIN81 MG PO (11:25)
[2018-02-27] MEDS ORDERED: ULTRAM50 MG PO (11:28)
== END 2018-02-27 14:52 | disposition home or self-care (01) | DRG 37 ==
LOC: D.SDCHOLD 05:12 → D.CVICU 05:12 → D.SDCHOLD 07:30 → D.CVICU 10:06
PROVIDERS: Internal Medicine Cardiovascular Disease; Internal Medicine Pulmonary Disease
PROC: 03UL0JZ Supplement Left Internal Carotid Artery with Synthetic Substitute, Open Approach (ICD-10-PCS; 2018-02-25)
PROC: 03CL0ZZ Extirpation of Matter from Left Internal Carotid Artery, Open Approach (ICD-10-PCS; principal; 2018-02-25 07:30)
DX: I65.22 Occlusion and stenosis of left carotid artery (principal); J96.01 Acute respiratory failure with hypoxia; J90 Pleural effusion, not elsewhere classified; J44.0 Chronic obstructive pulmonary disease with (acute) lower respiratory infection; J44.1 Chronic obstructive pulmonary disease with (acute) exacerbation; I25.10 Atherosclerotic heart disease of native coronary artery without angina pectoris; E78.00 Pure hypercholesterolemia, unspecified; I10 Essential (primary) hypertension; E03.9 Hypothyroidism, unspecified; J20.9 Acute bronchitis, unspecified; I73.9 Peripheral vascular disease, unspecified; F17.200 Nicotine dependence, unspecified, uncomplicated

== ENCOUNTER → 2018-04-23 10:28 | Outpatient (CLI) | payer MEDICARE ==
[2018-02-25 11:02] VITALS: BMI 18.1
[~2018-04-23 10:28] MED LIST changes: +ASPIRIN81 MG PO; +AUGMENTIN 875-11 TAB PO; +BROVANA15 MCG/2 M INH; +IPRAT-ALBUT 0.5-3 ML UPD; +STERAPRED 5MG 125 MG PO; +ULTRAM50 MG PO
== END | disposition home or self-care (01) ==
LOC: D.RT 10:28
DX: J90 Pleural effusion, not elsewhere classified (principal)

== ENCOUNTER → 2018-05-06 19:19 | Outpatient (CLI) | payer MEDICARE ==
[2018-02-25 11:02] VITALS: BMI 18.1
[2018-05-06 21:12] LABS: CHOL - HDL RATIO 2.7 ratio (2.3-4.1); LDL-HDL RATIO 1.4 ratio (1.5-3.5)
== END | disposition home or self-care (01) ==
LOC: D.LABREF 19:19
PROVIDERS: Family Medicine
DX: N18.9 Chronic kidney disease, unspecified (principal)

== ENCOUNTER 2018-07-20 10:53 | Emergency (ER) | payer MEDICARE ==
[~2018-07-20] VITALS: Ht 165.1 cm; Wt 47.2 kg
[2018-07-20 11:11] VITALS: Ht 165.1 cm; Wt 47.2 kg
[2018-07-20 11:37] LABS: BASOPHILS 0.1 % (0-2); EOSINOPHILS 1.6 % (0-7); HEMATOCRIT 42.8 % (36.0-48.0); HEMOGLOBIN 13.7 g/dL (12-16); IMMATURE GRANULOCYTES 0.1 % (0-5); LYMPHOCYTES 26.9 % (15-50); MCH 24.9 pg (26.0-34.0); MCV 77.8 fL (80.0-100.0); MONOCYTES 7.9 % (2-11); NEUTROPHILS 63.4 % (40-80); PLATELET COUNT 301 10x3/uL (130-400); RDW 18.1 % (11.5-14.5); WBC 7.6 10x3/uL (4.8-10.8)
[2018-07-20 11:48] LABS: APPEARANCE CLEAR (CLEAR); BILIRUBIN NEGATIVE (NEGATIVE); COLOR YELLOW (YELLOW); GLUCOSE NEGATIVE (NEGATIVE); KETONE NEGATIVE (NEGATIVE); NITRITE NEGATIVE (NEGATIVE); PROTEIN 1+ mg/dL (NEGATIVE); UROBILINOGEN NORMAL (NORMAL)
[2018-07-20 11:49] LABS: ALBUMIN 3.3 g/dL (3.4-5.0); ANION GAP 13.1 mmol/L (8-16); BILIRUBIN - TOTAL 0.13 mg/dL (0.2-1.3); CALCIUM 8.8 mg/dL (8.5-10.1); CARBON DIOXIDE 27.1 mmol/L (21.0-32.0); CREATININE - SERUM 1.2 mg/dL (0.6-1.3); EPITHELIAL CELLS OCC /hpf (0-5); POTASSIUM - SERUM 3.2 mmol/L (3.5-5.1); PROTEIN - SERUM 7.7 g/dL (6.4-8.2); RED CELLS - URINE 0-5 /hpf (0-5); WHITE CELLS - URINE 0-5 /hpf (0-5)
[2018-07-20 11:50] LABS: AMORPHOUS SEDIMENT <1+ /lpf (NONE SEEN); MUCUS <1+ /lpf (NONE SEEN)
[2018-07-20] MEDS ORDERED: ULTRACET TABLET1 TAB PO (14:00)
[2018-07-20 14:37] VITALS: BP 158/82
== END 2018-07-20 14:38 | disposition home or self-care (01) ==
LOC: D.ER 10:53
PROVIDERS: Emergency Medicine
DX: R10.9 Unspecified abdominal pain (principal); E87.6 Hypokalemia; Z86.73 Personal history of transient ischemic attack (TIA), and cerebral infarction without residual deficits; E07.9 Disorder of thyroid, unspecified; I10 Essential (primary) hypertension; I25.10 Atherosclerotic heart disease of native coronary artery without angina pectoris; J44.9 Chronic obstructive pulmonary disease, unspecified

== ENCOUNTER → 2018-08-29 09:21 | Outpatient (CLI) | payer MEDICARE ==
[~2018-08-29 09:21] MED LIST changes: +ULTRACET TABLET1 TAB PO
== END | disposition home or self-care (01) ==
LOC: D.RT 09:21
DX: R06.00 Dyspnea, unspecified (principal); J90 Pleural effusion, not elsewhere classified

== ENCOUNTER → 2019-05-13 09:37 | Outpatient (CLI) | payer OTHER | END | disposition home or self-care (01) | LOC: D.US 05-07 10:00 | PROVIDERS: ATTEND Internal Medicine Cardiovascular Disease | DX: I65.23 Occlusion and stenosis of bilateral carotid arteries (principal) ==

== ENCOUNTER → 2020-05-04 12:34 | Outpatient (CLI) | payer OTHER | END | disposition home or self-care (01) | LOC: D.US 12:34 | PROVIDERS: ATTEND Internal Medicine Cardiovascular Disease | DX: I65.23 Occlusion and stenosis of bilateral carotid arteries (principal) ==

== ENCOUNTER 2020-06-24 14:58 | Inpatient (IN) | payer OTHER ==
[~2020-06-24] VITALS: Ht 165.1 cm; Wt 54.4 kg
[~2020-06-24 14:58] MED LIST changes: +ALENDRONATE SOD35 MG PO; -ALENDRONATE SOD70 MG PO
[2020-06-24 15:52] LABS: BASOPHILS 0 % (0-2); EOSINOPHILS 0.1 % (0-7); HEMATOCRIT 43.1 % (36.0-48.0); HEMOGLOBIN 13.2 g/dL (12-16); IMMATURE GRANULOCYTES 0.2 % (0-5); LYMPHOCYTES 8.2 % (15-50); MCH 24.6 pg (26.0-34.0); MCHC 30.6 g/dL (31.0-37.0); MCV 80.3 fL (80.0-100.0); MEAN PLATELET VOLUME 9.3 fL (7.4-10.4); MONOCYTES 2.4 % (2-11); NEUTROPHILS 89.1 % (40-80); PLATELET COUNT 177 10x3/uL (130-400); RBC 5.37 10x6/uL (4.00-5.40); WBC 8.8 10x3/uL (4.8-10.8)
[2020-06-24 16:03] LABS: CALC OSMOLALITY 266 mosm/kg (275-300); CALCIUM 9.1 mg/dL (8.5-10.1); CARBON DIOXIDE 28.2 mmol/L (21.0-32.0); CHLORIDE - SERUM 98 mmol/L (98-107); CREATININE - SERUM 1.5 mg/dL (0.6-1.3); GLUCOSE 121 mg/dL (74-106); POTASSIUM - SERUM 4.9 mmol/L (3.5-5.1); SODIUM 132 mmol/L (136-145); UREA NITROGEN 16 mg/dL (7-18); eGFR NON AFRICAN AMERICAN 35 mL/min (90-120)
[2020-06-24 16:21] LABS: ALBUMIN 2.6 g/dL (3.4-5.0); ALKALINE PHOSPHATASE 48 U/L (30-120); ALT (SGPT) 20 U/L (10-68); BILIRUBIN - TOTAL 0.39 mg/dL (0.2-1.3); CKMB 2.8 U/L (0.0-3.6); CREATINE KINASE 94 UL (21-215); PRO BNP 5522 pg/mL (0-450); PROTEIN - SERUM 6.5 g/dL (6.4-8.2); TROPONIN-I 0.026 ng/mL (0.000-0.060)
[2020-06-24 16:26] LABS: APTT 32.5 SECONDS (22.8-39.4); INR 1.09 (0.85-1.17)
[2020-06-24 17:12] LABS: BILIRUBIN NEGATIVE (NEGATIVE); GLUCOSE NEGATIVE (NEGATIVE); KETONE NEGATIVE (NEGATIVE); NITRITE NEGATIVE (NEGATIVE); UROBILINOGEN NORMAL (NORMAL)
[2020-06-24 17:19] LABS: BACTERIA FEW /hpf (NEGATIVE); EPITHELIAL CELLS 0-5 /hpf (0-5); RED CELLS - URINE 0-5 /hpf (0-5); WHITE CELLS - URINE 0-5 /hpf (NEGATIVE)
--- NOTE | 2020-06-24 20:00 | NUR ---
PT ARRIVED TO FLOOR FROM ER, AOX4. TRANSFERED TO BED. IV LEFT AC INFUSING NS @ 75. O2 4L/NC. PRODUCTIVE COUGH WITH WHITE/CLEAR SPUTUM. LUNGS DIMINISHED IN ALL LOBES. SOB AT REST, MORE WITH EXERTION. PROVIDED BEDSIDE COMMODE. PT ASSISTED TO COMMODE TO VOID AND BACK TO BED. WILL CTM
[2020-06-24] MEDS ORDERED: COLACE100 MG PO (22:52)
[2020-06-24] MEDS ORDERED: FUROSEMIDE20 MG PO (22:53)
[2020-06-24] MEDS ORDERED: IMODIUM2 MG PO (22:54)
[2020-06-24] MEDS ORDERED: LORAZEPAM1 MG/0.5 M SL (22:56)
[2020-06-24] MEDS ORDERED: MORPHINE S10 MG/5 ML PO (22:57)
[2020-06-24] MEDS ORDERED: MUCINEX600 MG PO (22:58)
[2020-06-24] MEDS ORDERED: PERCOCET 10-321 EAC1 PO (22:59)
[2020-06-24] MEDS ORDERED: SENNA LAXATIVE8.6 MG PO (23:00)
[2020-06-24] MEDS ORDERED: PREDNISONE20 MG PO (23:00)
[2020-06-24] MEDS ORDERED: TESSALON PERLE100 MG PO (23:01)
[2020-06-24] MEDS ORDERED: VALTREX500 MG PO (23:02)
[2020-06-24] MEDS ORDERED: ZOFRAN4 MG PO (23:03)
[2020-06-24] MEDS ORDERED: HYDRALAZINE HCL25 MG PO (23:08)
[2020-06-24] MEDS ORDERED: KEFLEX500 MG PO (23:11)
[2020-06-25] VITALS: BP 103/56
[2020-06-25] MEDS ORDERED: IPRAT-ALBUT 0.5-3 ML UPD (00:13)
[2020-06-25 04:00] VITALS: BP 134/67
[2020-06-25 04:43] LABS: BASOPHILS 0 % (0-2); EOSINOPHILS 0.3 % (0-7); HEMATOCRIT 37.5 % (36.0-48.0); HEMOGLOBIN 11.4 g/dL (12-16); IMMATURE GRANULOCYTES 0.4 % (0-5); LYMPHOCYTES 13.5 % (15-50); MCH 24.3 pg (26.0-34.0); MCHC 30.4 g/dL (31.0-37.0); MCV 79.8 fL (80.0-100.0); MEAN PLATELET VOLUME 9.4 fL (7.4-10.4); NEUTROPHILS 75.8 % (40-80); PLATELET COUNT 184 10x3/uL (130-400); RDW 18.9 % (11.5-14.5); WBC 7.7 10x3/uL (4.8-10.8)
[2020-06-25 05:04] LABS: ANION GAP 10.1 mmol/L (8-16); BILIRUBIN - TOTAL 0.2 mg/dL (0.2-1.3); CALCIUM 8.1 mg/dL (8.5-10.1); CARBON DIOXIDE 28.5 mmol/L (21.0-32.0); CREATININE - SERUM 1.4 mg/dL (0.6-1.3); PHOSPHOROUS 3.8 mg/dL (2.5-4.9); POTASSIUM - SERUM 4.6 mmol/L (3.5-5.1); PROTEIN - SERUM 5.4 g/dL (6.4-8.2)
--- NOTE | 2020-06-25 07:15 | NUR ---
REC'D IN WALKING ROUNDS AWAKE AND ALERT. RESP EVEN AND UNLABORED WITH NO DISTRESS NOTED. CAN EXPRESS NEED AND WANTS. NO C/O NOTED OR VOICED. STAND BY ASSIST TO BSC. ASSESSMENT COMPLETED. C/L IN REACH AT BEDSIDE.
[2020-06-25 11:05] VITALS: BP 135/72
[2020-06-25 12:56] VITALS: Ht 165.1 cm; Wt 54.4 kg
[2020-06-25 13:31] VITALS: BP 106/55
[2020-06-25 17:31] VITALS: BP 128/65
--- NOTE | 2020-06-25 18:45 | NUR ---
I have reviewed this patient and I concur with the Shift Assessment completed by the Licensed Practical Nurse today this shift.
[2020-06-25 20:00] VITALS: BP 137/68
[2020-06-26 04:00] VITALS: BP 164/88
[2020-06-26 06:38] LABS: BASOPHILS 0.1 % (0-2); EOSINOPHILS 0.6 % (0-7); HEMOGLOBIN 11.2 g/dL (12-16); IMMATURE GRANULOCYTES 0.4 % (0-5); LYMPHOCYTES 12.5 % (15-50); MCH 23.7 pg (26.0-34.0); MCHC 29.5 g/dL (31.0-37.0); MCV 80.3 fL (80.0-100.0); MEAN PLATELET VOLUME 9.5 fL (7.4-10.4); MONOCYTES 8.6 % (2-11); NEUTROPHILS 77.8 % (40-80); PLATELET COUNT 212 10x3/uL (130-400); RBC 4.73 10x6/uL (4.00-5.40); RDW 19.1 % (11.5-14.5)
--- NOTE | 2020-06-26 07:10 | NUR ---
REC'D IN BED WITH EYES CLOSED EASILY AROUSED WHEN NAME IS CALLED. RESP EVEN AND UNLABORED WITH NO DISTRESS NOTED. CAN EXPRESS NEEDS AND WANTS. ASSESSMENT COMPLETED. C/L IN REACH AT BEDSIDE.
[2020-06-26 07:12] LABS: ANION GAP 13.1 mmol/L (8-16); CALCIUM 7.5 mg/dL (8.5-10.1); CREATININE - SERUM 1.1 mg/dL (0.6-1.3); MAGNESIUM - SERUM 1.9 mg/dL (1.8-2.4); POTASSIUM - SERUM 4.1 mmol/L (3.5-5.1)
[2020-06-26 07:13] LABS: PHOSPHOROUS 2.5 mg/dL (2.5-4.9)
[2020-06-26 09:42] VITALS: BP 161/97
--- NOTE | 2020-06-26 12:28 | NUR ---
CALLED PATTERNMAKER APPRENTICE WOOD ABOUT PT HAVING AND ABDNORMAL EKG. NO NEW ORDERS REC'D. GOING TO CONSULT CARDIOLOGY TO HER CAUSE TELE ON WITH HR OF 152. C/L IN REACH AT BEDSIDE.
[2020-06-26 12:52] VITALS: BP 152/86
--- NOTE | 2020-06-26 13:10 | NUR ---
I have reviewed this patient and I concur with the Shift Assessment completed by the Licensed Practical Nurse today this shift.
[2020-06-26 17:15] VITALS: BP 138/78
--- NOTE | 2020-06-26 19:27 | NUR ---
PATIENT RESTING IN BED WITH EYES CLOSED AND NO S/S OF DISTRESS. BED IN LOWEST POSITION AND CALL LIGHT WITHIN REACH. WILL CONTINUE TO MONITOR.
[2020-06-26 20:00] VITALS: BP 140/59
--- NOTE | 2020-06-26 20:25 | NUR ---
ADMINISTERED MEDS PER ORDERS. ASSISTED PATIENT TO AND FROM BSC. PATIENT DENIES OTHER NEEDS .WILL CONTINUE TO MONITOR.
[2020-06-26 22:06] LABS: THYROID STIMULATING HORMONE 17.51 uIU/mL (0.36-3.74)
[2020-06-26 22:07] LABS: TROPONIN-I 0.066 ng/mL (0.000-0.060)
--- NOTE | 2020-06-26 22:18 | NUR ---
PAGED DR. BOWLING IN REGARDS TO PATIENT'S ELEVATED TROPONIN LEVEL
--- NOTE | 2020-06-26 22:20 | NUR ---
NOTIFIED DR. BOWLING THAT THE PATIENT'S TROPONIN LEVEL IS 0.066
[2020-06-27] VITALS (7 sets, daily range): BP systolic 123–147; BP diastolic 61–80
[2020-06-27 07:07] LABS: BASOPHILS 0.1 % (0-2); EOSINOPHILS 6.8 % (0-7); HEMATOCRIT 37.4 % (36.0-48.0); HEMOGLOBIN 11.2 g/dL (12-16); IMMATURE GRANULOCYTES 1.1 % (0-5); MCH 24.2 pg (26.0-34.0); MCHC 29.9 g/dL (31.0-37.0); MCV 80.8 fL (80.0-100.0); MEAN PLATELET VOLUME 9.4 fL (7.4-10.4); MONOCYTES 9.3 % (2-11); NEUTROPHILS 67.7 % (40-80); PLATELET COUNT 225 10x3/uL (130-400); RBC 4.63 10x6/uL (4.00-5.40); RDW 19.2 % (11.5-14.5)
[2020-06-27 07:33] LABS: ANION GAP 11.9 mmol/L (8-16); CALCIUM 7.6 mg/dL (8.5-10.1); MAGNESIUM - SERUM 1.8 mg/dL (1.8-2.4); PHOSPHOROUS 2.1 mg/dL (2.5-4.9); POTASSIUM - SERUM 3.9 mmol/L (3.5-5.1)
--- NOTE | 2020-06-27 09:45 | NUR ---
PT RESTING QUIETLY IN BED. RESP UNLABORED AT THIS TIME. O2 @ 4L NC IN PLACE. IV TO LEFT AC WITH NS@ 75ML/HR INFUSING VIA PUMP. SITE WITHOUT REDNESS OR EDEMA. DENIES FURTHER NEEDS AT THIS TIME. CL WITHIN REACH. ENCOURAGED TO CALL WITH NEEDS. CONTINUE POC
--- NOTE | 2020-06-27 20:05 | NUR ---
PATIENT RESTING IN BED WITH EYES CLOSED AND NO S/S OF DISTRESS. BED IN LOWEST POSITION AND CALL LIGHT WITHIN REACH. WILL CONTINUE TO MONITOR.
--- NOTE | 2020-06-27 21:37 | NUR ---
ADMINISTERED MEDS PER ORDERS. PATIENT DENIES OTHER NEEDS. WILL CONTINUE TO MONITOR.
[2020-06-28] VITALS: BP 137/71
[2020-06-28 05:12] LABS: BASOPHILS 0.3 % (0-2); EOSINOPHILS 0.7 % (0-7); HEMATOCRIT 37.8 % (36.0-48.0); HEMOGLOBIN 11.2 g/dL (12-16); IMMATURE GRANULOCYTES 0.5 % (0-5); LYMPHOCYTES 13.4 % (15-50); MCH 24.2 pg (26.0-34.0); MCHC 29.6 g/dL (31.0-37.0); MCV 81.6 fL (80.0-100.0); MEAN PLATELET VOLUME 8.9 fL (7.4-10.4); MONOCYTES 8.2 % (2-11); NEUTROPHILS 76.9 % (40-80); PLATELET COUNT 183 10x3/uL (130-400); RBC 4.63 10x6/uL (4.00-5.40); RDW 19.2 % (11.5-14.5); WBC 7.5 10x3/uL (4.8-10.8)
[2020-06-28 06:49] LABS: ANION GAP 11.7 mmol/L (8-16); CALCIUM 7.7 mg/dL (8.5-10.1); CARBON DIOXIDE 25.2 mmol/L (21.0-32.0); CREATININE - SERUM 0.9 mg/dL (0.6-1.3); MAGNESIUM - SERUM 1.8 mg/dL (1.8-2.4); PHOSPHOROUS 1.7 mg/dL (2.5-4.9); POTASSIUM - SERUM 3.9 mmol/L (3.5-5.1)
--- NOTE | 2020-06-28 07:15 | NUR ---
REC'D IN BED AWAKE AND ALERT. RESP EVEN AND UNLABORED WITH NO DISTRESS NOTED. CAN EXPRESS NEEDS AND WANTS. NO C/O NOTED OR VOICED. ASSESSMENT COMPLETED. C/L IN REACH A BEDSIDE.
[2020-06-28 08:00] VITALS: BP 154/76
[2020-06-28] MEDS ORDERED: FEXOFENADINE HC60 MG PO (11:25)
[2020-06-28] MEDS ORDERED: FLUTICASONE PRO16 GM NASAL (11:26)
[2020-06-28] MEDS ORDERED: LANOXIN125 MCG PO (11:26)
[2020-06-28] MEDS ORDERED: OMNICEF300 MG PO (11:27)
[2020-06-28] MEDS ORDERED: ZITHROMAX500 MG PO (11:27)
[2020-06-28] MEDS ORDERED: FLORAJEN3 CAPS460 MG PO (11:27)
--- NOTE | 2020-06-28 11:55 | MORECARE ---
CASE MANAGEMENT DISCHARGE SUMMARY PATIENT: LAKESHIA HERRERA UNIT: [id number] ADM DATE: 06/24/20 AGE: 79 : 38 SEX: F ROOM/BED: D.2226 AUTHOR: JYOTI ÁLVAREZ PHYSICIAN: REFERRING PHYSICIAN: MARCO DUMONT MD DATE OF SERVICE: 06/28/20 Discharge Plan Patient Name: LAKESHIA HERRERA Facility: [facility]:[place] : 1940 Planned Disposition: Anticipated Discharge Date: Discharge Date: Expected LOS: Initial Reviewer: [email or web address] Initial Review Date: 06/28/2020 Generated: 06/28/20 12:55 pm External Providers External Provider: [facility] Next Contact Date: Service Request Date: Service Type: Resolution: Reviewer: Comments: Patient Name: LAKESHIA HERRERA Page [phone] at 1155 All edits/amendments must be made on the electronic document DICTATION DATE: 06/28/20 1155 IT HELP DESK TECHNICIAN: BYRON 06/28/20 1155 RPT#: [id number] DC DATE: STATUS: ADM IN [facility] [address] [place] [address] END OF REPORT
[2020-06-28 12:00] VITALS: BP 147/74
--- NOTE | 2020-06-28 12:02 | MORECARE ---
CASE MANAGEMENT DISCHARGE SUMMARY PATIENT: LAKESHIA HERRERA UNIT: [id number] ADM DATE: 06/24/20 AGE: 79 : 38 SEX: F ROOM/BED: D.2226 AUTHOR: JYOTI ÁLVAREZ PHYSICIAN: REFERRING PHYSICIAN: MARCO DUMONT MD DATE OF SERVICE: 06/28/20 Discharge Plan Patient Name: LAKESHIA HERRERA Facility: [facility]:[place] : 1940 Planned Disposition: Anticipated Discharge Date: Discharge Date: Expected LOS: Initial Reviewer: [email or web address] Initial Review Date: 06/28/2020 Generated: 06/28/20 1:02 pm Comments DCP- Discharge Planning Updated by [email or web address]: Kay Call on 06/28/20 10:[address] Patient Name: LAKESHIA HERRERA Admission Status: ER Accout number: [id number] Admission Date: 06-24-2020 : 1940 Admission Diagnosis:FEVER, UNSPECIFIED Attending: MARCO DUMONT Current LOS: 4 Anticipated DC Date: Planned Disposition: Primary Insurance: [employer] Discharge Planning Comments: CM met with patient at bedside after explaining CM role and obtaining verbal consent. CM discussed availability / needs of home health, REHAB and medical equipment. PLANS TO RESUME CARE WITH HOSPICE HOME CARE. LOW AND IMM SIGNED. PATIENT WILL HAVE AMBULANCE TRANSPORT TO HOME. HOSPICE HOME CARE CONTACTED AND DC FAXED TO THEM. Law Secretary: Kay Call Coverage Notice Reviewer: [email or web address] Jade Call Notice Issued Date-Time: 06/28/2020 11:55 Notice Type: IM Discharge Notice Notice Delivered To: Patient Relationship to Patient: Adventure Guide Name: Delivery Method: HAND - Hand Delivered Fiona Days: Prior Verbal Notification: Recipient Understood Notice: Yes Recipient Signature: Yes Med Rec Note Co-signed by Attending: Coverage Notice Comment: Reviewer: [email or web address] Jaed Call Notice Issued Date-Time: 06/28/2020 11:55 Notice Type: Patient Choice Letter Notice Delivered To: Relationship to Patient: Adventure Guide Name: Delivery Method: - Fiona Days: Prior Verbal Notification: Recipient Understood Notice: Yes Recipient Signature: Yes Med Rec Note Co-signed by Attending: Coverage Notice Comment: RESUME HOSPICE HOME CARE Last DP export: 06/28/20 10:55 am Patient Name: LAKESHIA HERRERA Page [phone] at 1202 All edits/amendments must be made on the electronic document DICTATION DATE: 06/28/20 1202 DIESEL MECHANIC APPRENTICE: BYRON 06/28/20 1202 RPT#: [id number] DC DATE: STATUS: ADM IN [facility] [address] [place] [address] END OF REPORT
[2020-06-28] MEDS ORDERED: NICODERM CQ1 EAC3 TOPICAL (12:42)
--- NOTE | 2020-06-28 13:13 | MORECARE ---
CASE MANAGEMENT DISCHARGE SUMMARY PATIENT: LAKESHIA HERRERA UNIT: [id number] ADM DATE: 06/24/20 AGE: 79 : 38 SEX: F ROOM/BED: D.2226 AUTHOR: JYOTI ÁLVAREZ PHYSICIAN: REFERRING PHYSICIAN: MARCO DUMONT MD DATE OF SERVICE: 06/28/20 Discharge Plan Patient Name: LAKESHIA HERRERA Facility: [facility]:[place] : 1940 Planned Disposition: Anticipated Discharge Date: Discharge Date: Expected LOS: Initial Reviewer: [email or web address] Initial Review Date: 06/28/2020 Generated: 06/28/20 2:13 pm Comments DCP- Discharge Planning Updated by [email or web address]: Kay Call on 06/28/20 10:[address] Patient Name: LAKESHIA HERRERA Admission Status: ER Accout number: [id number] Admission Date: 06-24-2020 : 1940 Admission Diagnosis:FEVER, UNSPECIFIED Attending: MARCO DUMONT Current LOS: 4 Anticipated DC Date: Planned Disposition: Primary Insurance: [employer] Discharge Planning Comments: CM met with patient at bedside after explaining CM role and obtaining verbal consent. CM discussed availability / needs of home health, REHAB and medical equipment. PLANS TO RESUME CARE WITH HOSPICE HOME CARE. LOW AND IMM SIGNED. PATIENT WILL HAVE AMBULANCE TRANSPORT TO HOME. HOSPICE HOME CARE CONTACTED AND DC FAXED TO THEM. Business Proposal Rep: Kay Call External Providers External Provider: [facility] Next Contact Date: Service Request Date: Service Type: Resolution: Reviewer: Comments: Coverage Notice Reviewer: [email or web address] Jade Call Notice Issued Date-Time: 06/28/2020 11:55 Notice Type: IM Discharge Notice Notice Delivered To: Patient Relationship to Patient: Adjunct Spanish Instructor Name: Delivery Method: HAND - Hand Delivered Fiona Days: Prior Verbal Notification: Recipient Understood Notice: Yes Recipient Signature: Yes Med Rec Note Co-signed by Attending: Coverage Notice Comment: Reviewer: [email or web address] Jade Call Notice Issued Date-Time: 06/28/2020 11:55 Notice Type: Patient Choice Letter Notice Delivered To: Relationship to Patient: Adjunct Spanish Instructor Name: Delivery Method: - Fiona Days: Prior Verbal Notification: Recipient Understood Notice: Yes Recipient Signature: Yes Med Rec Note Co-signed by Attending: Coverage Notice Comment: RESUME HOSPICE HOME CARE Last DP export: 06/28/20 11:02 am Patient Name: LAKESHIA HERRERA Page [phone] at 1313 All edits/amendments must be made on the electronic document DICTATION DATE: 06/28/20 131 EVENT PROMOTER: BYRON 06/28/20 1313 RPT#: [id number] DC DATE: STATUS: ADM IN [facility] [address] [place] [address] END OF REPORT
--- NOTE | 2020-06-28 13:47 | CN ---
PATIENT NAME:YADIRA HERRERA MEDICAL RECORD: [id number] : 36 LOCATION:D.[facility] ADMIT DATE: 06/24/20 ACCOUNT: [id number] CONSULTING PHYSICIAN: KAVITHA MOON MD REFERRING PHYSICIAN: MARCO DUMONT MD DATE OF CONSULTATION: 06/26/2020 HISTORY OF PRESENT ILLNESS: Yadira Herrera is an 79-year-old female with a history of obstructive pulmonary disease, on home O2. She continues to smoke about a pack a day. She was initially on hospice. Admitted with marked dyspnea, shortness of breath, about a 5-day history, occasional palpitation, some productive cough, was noted to have atrial fibrillation with RVR, currently in sinus tachycardia. We are asked to see her concerning her cardiovascular status. PAST MEDICAL HISTORY: Includes; 1. History of obstructive pulmonary disease. 2. Coronary artery disease, status post intervention. 3. Hypertension. 4. Hyperlipidemia. ALLERGIES: SULFA. MEDICATIONS: Chronically include Brovana updraft 15 mcg t.i.d., DuoNeb 3 mL q.i.d., Plavix 75 every day, atenolol every day, losartan 100 every day, Cardizem 300 every day, atorvastatin 80 every day, hydralazine 25 q.i.d., aspirin 81 every day, morphine sulfate, Xanax 0.25 t.i.d., Percocet 10/325 every day, Lasix 20 every day, Synthroid 100 mcg every day, prednisone 20 every day. SOCIAL HISTORY: Continues to smoke about a pack a day, does have trouble with ADLs, was recently on hospice. REVIEW OF SYSTEMS: The patient reports easy bruising but reports no swollen glands. The patient reports no fever, no night sweats, no significant weight gain, no significant weight loss. No significant exercise tolerance. The patient reports no dry eyes, no irritation, no vision change. Patient reports no difficulty hearing and no ear pain. Patient reports no frequent nose bleeds or nose and sinus problems. Patient reports on arm pain on exertion. No shortness of breath while lying down. No history of heart murmur. Patient reports no cough, no wheezing or coughing up blood. Patient reports no abdominal pain, no vomiting. Normal appetite. No diarrhea and not vomiting blood. No nausea and no constipation. Patient reports no incontinence. No difficulty urinating. No hematuria. No increased frequency. Patient reports no muscle aches. No weakness, no arthralgias, no back pain. No swelling of the extremities. Patient reports no abnormal mole, no jaundice, no rashes. Reports no loss of consciousness. No weakness and no numbness. No seizures, dizziness, or headaches. The patient reports no depression, no sleep disturbance, feeling safe in a relationship and no alcohol abuse. Patient reports on fatigue. Reports no runny nose or sinus pressure. No itching, no hives, and no frequent sneezing. PHYSICAL EXAMINATION: GENERAL: Pleasant female, in no acute distress. VITAL SIGNS: Blood pressure 152/86, pulse 110 and regular. HEENT: Normocephalic, atraumatic. CONSULT REPORT [id number] YADIRA HERRERA NECK: No bruits are noted. HEART: Regular, tachycardic. A II/ systolic ejection murmur. LUNGS: Prolonged respiratory phase with expiratory wheezes. ABDOMEN: Soft, nontender. EXTREMITIES: Pulses 2+. There is no edema. IMPRESSION: Intermittent atrial fibrillation, suspect exacerbated by underlying obstructive pulmonary disease, increased catecholamine drive, etc. We will try digoxin for rate control, already on calcium channel blockade orally. If symptoms continue, consider something such as amiodarone. TRANSINT:[id number] Voice Confirmation ID: [id number] DOCUMENT ID: [id number] KAVITHA MOON MD at 1347 CC: [id number] DICTATION DATE: 06/26/20 1419 MOTORBOAT OPERATOR: 06/26/20 1552 ADM IN [place] [address] [place] [address]
--- NOTE | 2020-06-28 13:47 | EC ---
PATIENT:LAKESHIA HERRERA DATE OF SERVICE: 06/24/20 SEX: F MEDICAL RECORD: [id number] DATE OF : 36 LOCATION:D[facility] [place] AGE OF PATIENT: 79 ADMISSION DATE: 06/24/20 REFERRING PHYSICIAN: INTERPRETING PHYSICIAN: KAVITHA MOON MD ECHOCARDIOGRAM REPORT ECHO CHARGES 4 ECHO COMPLETE Date: 06/26/20 CLINICAL DIAGNOSIS: A-FIB ECHOCARDIOGRAPHIC MEASUREMENTS (adult normal given) AC root (d.<3.7cm) 3.2 cm LV Septum d (<1.2 cm> 1.3 cm Valve Excursion 2.9 cm LV Septum (systole) 1.7 cm Left Atria (s.<4.0cm> 4.2 cm LVPW d(<1.2cm) 1.3 cm RV (d.<2.3cm) 3.1 cm LVPW (sytole) 1.8 cm LV diastole(<5.6CM) 5.0 cm MV E-F(>70mm/sec) cm LV systole 2.7 cm LVOT Diameter 1.6 cm MV exc.(>10mm) cm Est.ejection fraction (50-75%) % DOPPLER: LVIT cm/sec A 146 cm/sec E 114 cm/sec LA cm/sec RVSP 67.3 mmHg LVOT 132 cm/sec AOP1/2T m/s Asc. Ao 131 cm/sec RVOT 70.0 cm/sec RA cm/sec PA 94.0 cm/sec AV Gradient Peak 6.9 mmHg AV Mean 3.3 mmHg AV Area 2.1 cm MV Gradient Peak 11.0 mmHg MV Mean 3.7 mmHg MV Area cm COMMENTS: Senior Web Developer: 1 LON KWOKOE Investigative Analyst: 3 Dr. Nicholson TAPE# PACS Pericardial Effusion N DATE OF SERVICE: Adequate 2D, color flow imaging, spectral Doppler, and M-Mode. LVH is present. LV internal dimension is normal. Wall motion is normal. EF is greater than or equal to 55%. Aortic valve is tricuspid. No evidence of stenosis by Doppler interrogation. Left atrium is mildly dilated at 4.2 cm. Mitral valve shows no prolapse. Moderate MR. Right-sided chambers are grossly normal. Moderate TR. ECHOCARDIOGRAM REPORT [id number] LAKESHIA HERRERA TRANSINT:[id number] Voice Confirmation ID: [id number] DOCUMENT ID: [id number] KAVITHA MOON MD at 1347 CC: [id number] DICTATION DATE: 06/27/20 1140 MARKETING OPERATIONS ASSISTANT: 06/27/20 2131 ADM IN [place] [id number] [place] [address]
--- NOTE | 2020-06-28 13:48 | NUR ---
DC HOME AT THIS TIME VOICE UNDERSTANDING OF DC INSTRUCTION. IV DISCONTINUED. DAUGHTER AT BEDSIDE AND VOICE UNDERSTANDING WELL. STABLE CONDITION UPON DEPARTURE VIA AMBULANCE.
--- NOTE | 2020-06-30 09:35 | MORECARE ---
CASE MANAGEMENT DISCHARGE SUMMARY PATIENT: LAKESHIA HERRERA UNIT: [id number] ADM DATE: 06/24/20 AGE: 79 : 38 SEX: F ROOM/BED: D.2226 AUTHOR: JYOTI ÁLVAREZ PHYSICIAN: REFERRING PHYSICIAN: MARCO DUMONT MD DATE OF SERVICE: 06/30/20 Discharge Plan Patient Name: LAKESHIA HERRERA Facility: [facility]:[place] : 1940 Planned Disposition: Anticipated Discharge Date: Discharge Date: 06/28/2020 Expected LOS: Initial Reviewer: [email or web address] Initial Review Date: 06/28/2020 Generated: 06/30/20 10:34 am Comments DCP- Discharge Planning Updated by [email or web address]: Kay Call on 06/28/20 10:[address] Patient Name: LAKESHIA HERRERA Admission Status: ER Accout number: [id number] Admission Date: 06-24-2020 : 1940 Admission Diagnosis:FEVER, UNSPECIFIED Attending: MARCO DUMONT Current LOS: 4 Anticipated DC Date: Planned Disposition: Primary Insurance: [employer] Discharge Planning Comments: CM met with patient at bedside after explaining CM role and obtaining verbal consent. CM discussed availability / needs of home health, REHAB and medical equipment. PLANS TO RESUME CARE WITH [facility]. LOW AND IMM SIGNED. PATIENT WILL HAVE AMBULANCE TRANSPORT TO HOME. [facility] CONTACTED AND DC FAXED TO THEM. Truck Technician: Kay Call Coverage Notice Reviewer: [email or web address] Jade Call Notice Issued Date-Time: 06/28/2020 11:55 Notice Type: IM Discharge Notice Notice Delivered To: Patient Relationship to Patient: Syrup Blender Name: Delivery Method: HAND - Hand Delivered Fiona Days: Prior Verbal Notification: Recipient Understood Notice: Yes Recipient Signature: Yes Med Rec Note Co-signed by Attending: Coverage Notice Comment: Reviewer: [email or web address] Jade Call Notice Issued Date-Time: 06/28/2020 11:55 Notice Type: Patient Choice Letter Notice Delivered To: Relationship to Patient: Syrup Blender Name: Delivery Method: - Fiona Days: Prior Verbal Notification: Recipient Understood Notice: Yes Recipient Signature: Yes Med Rec Note Co-signed by Attending: Coverage Notice Comment: RESUME [facility] Last DP export: 06/28/20 12:13 pm Patient Name: LAKESHIA HERRERA Page [id number] at 0935 All edits/amendments must be made on the electronic document DICTATION DATE: 06/30/20934 PRESS CLEANER: BYRON 06/30/20934 RPT#: [id number] DC DATE:06/28/20 STATUS: DIS IN [facility] [address] [place] [address] END OF REPORT
== END 2020-06-28 13:57 | disposition home health service (06) | DRG 194 ==
LOC: D.ER 14:58 → D.MS 18:09
PROVIDERS: Family Medicine; ADMIT Family Medicine; ATTEND Family Medicine
DX: J18.9 Pneumonia, unspecified organism (principal); N17.9 Acute kidney failure, unspecified; E87.1 Hypo-osmolality and hyponatremia; E03.9 Hypothyroidism, unspecified; Z86.73 Personal history of transient ischemic attack (TIA), and cerebral infarction without residual deficits; F32.9 Major depressive disorder, single episode, unspecified; E78.5 Hyperlipidemia, unspecified; I10 Essential (primary) hypertension; I25.10 Atherosclerotic heart disease of native coronary artery without angina pectoris; I48.91 Unspecified atrial fibrillation; J43.9 Emphysema, unspecified; F17.200 Nicotine dependence, unspecified, uncomplicated